=== PATIENT | female | born 1985 | race Asian ===

== ENCOUNTER 2018-10-10 19:47 | Inpatient (IN) | payer OTHER ==
[~2018-10-10] VITALS: Ht 162.6 cm; Wt 73.8 kg
[2018-10-10] MEDS ORDERED: D5%-LACTATED RINGERS 1,000 ML IV SCH (21:41)
[2018-10-10] MEDS ORDERED: LACTATED RINGERS 1,000 ML IV SCH ×2 (21:41→22:35)
[2018-10-10] MEDS ORDERED: OXYTOCIN 30U/ 0.9% NaCL 500ML 500 ML IV ONE (21:41)
[2018-10-10] MEDS ORDERED: FENTANYL/BUPIV./NS/PF 250 ML EPIDCONT SCH ×2 (21:43→22:35)
[2018-10-10] MEDS ORDERED: LIDOCAINE 1%, 10ML ONE (21:48)
[2018-10-10] MEDS ORDERED: NEWBORN KIT ONE (21:48)
[2018-10-10] MEDS ORDERED: OXYTOCIN 30U/ 0.9% NaCL 500ML 500 ML ONE (21:49)
[2018-10-10] MEDS ORDERED: MISOPROSTOL 200 MCG TABLET ONE (21:49)
[2018-10-10 21:59] LABS: BASOPHILS # (AUTO) 0.04 x10^3/uL (0-0.1); BASOPHILS % (AUTO) 0 % (0-1); EOSINOPHILS # (AUTO) 0.03 x10^3/uL (0-0.4); EOSINOPHILS % (AUTO) 0 % (1-7); LYMPHOCYTES # (AUTO) 1.98 x10^3/uL (1-3.4); LYMPHOCYTES % (AUTO) 15 % (22-44); MD NO; MEAN CORPUSCULAR HEMOGLOBIN 33.1 pg (27.0-34.8); MEAN CORPUSCULAR HGB CONC 33.4 g/dL (32.4-35.8); MEAN PLATELET VOLUME 7.2 fL (7.4-10.4); MONOCYTES # (AUTO) 0.75 x10^3/uL (0.2-0.8); MONOCYTES % (AUTO) 6 % (2-9); NEUTROPHILS # (AUTO) 10.13 x10^3/uL (1.8-6.8); NEUTROPHILS % (AUTO) 78 % (42-75); PLATELET COUNT 212 x10^3/uL (130-400); RED BLOOD COUNT 4.05 x10^6/uL (3.82-5.3); RED CELL DISTRIBUTION WIDTH 13.8 % (9.6-15.2)
[2018-10-10] MEDS ORDERED: FENTANYL PF 500 MCG, BUPIVACAINE/PF 0.5%, 30ML 62.5 ML in SODIUM CHLORIDE 0.9% 177.5 ML EPIDCONT SCH (22:00)
[2018-10-10] MEDS ORDERED: SODIUM CITRATE/CITRIC ACID 15 ML UDC PO PRN (22:00)
[2018-10-10] MEDS ORDERED: METOCLOPRAMIDE 5 MG/ML, 2ML IVPush PRN (22:00)
[2018-10-10] MEDS ORDERED: TERBUTALINE 1 MG/ML, 1ML IVPush PRN (22:00)
[2018-10-10] MEDS ORDERED: CALCIUM CARBONATE 500 MG TAB.CHEW PO PRN (22:00)
[2018-10-10] MEDS ORDERED: FENTANYL PF 100 MCG/2ML IVPush PRN (22:00)
[2018-10-10] MEDS ORDERED: FENTANYL PF 100 MCG/2ML IV PRN (22:00)
[2018-10-10] MEDS ORDERED: ONDANSETRON 2MG/ML, 2ML IVPush PRN ×2 (22:00→23:00)
[2018-10-10] MEDS ORDERED: SODIUM CHLORIDE FLUSH 10ML SYR IVF PRN (22:00)
[2018-10-10] MEDS ORDERED: ALUMINUM/MAG/SIMETHICONE 30 ML UDC PO PRN (22:00)
[2018-10-10] MEDS ORDERED: TERBUTALINE 1 MG/ML, 1ML SQ PRN (22:00)
[2018-10-10] MEDS ORDERED: LIDOCAINE/PF 1.5%-EPI 1:200K, 30ML ONE ×2 (22:17→22:20)
[2018-10-10] MEDS ORDERED: BUPIVACAINE 0.25% ONE ×2 (22:17→22:20)
[2018-10-10] MEDS ORDERED: LIDOCAINE 1%, 20ML ONE (22:20)
[2018-10-10] MEDS ORDERED: FENTANYL/BUPIV./NS/PF 250 ML EPIDCONT ONE (22:20)
[2018-10-10] MEDS ORDERED: NALOXONE 0.4 MG/ML, 1ML IVPush PRN (23:00)
[2018-10-10] MEDS ORDERED: EPHEDRINE 50 MG/ML, 1ML IVPush PRN (23:00)
[2018-10-10] MEDS ORDERED: DIPHENHYDRAMINE 50 MG/ML, 1ML IVPush PRN (23:00)
[2018-10-10] MEDS ORDERED: LACTATED RINGERS 1,000 ML IVBOLUS PRN (23:00)
[2018-10-10 23:15] VITALS: BP 121/70
[2018-10-11] MEDS: OXYTOCIN 30U/ 0.9% NaCL 500ML 500 ML IV SCH ×2 (01:58→11:58)
[2018-10-11] MEDS ORDERED: MAGNESIUM HYDROXIDE 8%, 30ML UDC PO PRN (02:00)
[2018-10-11] MEDS ORDERED: METOCLOPRAMIDE 5 MG/ML, 2ML IV PRN (02:00)
[2018-10-11] MEDS ORDERED: IBUPROFEN 800 MG TABLET PO PRN (02:00)
[2018-10-11] MEDS ORDERED: BISACODYL 10 MG SUPP PR PRN (02:00)
[2018-10-11] MEDS ORDERED: CARBOPROST TROMETHAMINE 250 MCG/ML, 1ML IM PRN (02:00)
[2018-10-11] MEDS ORDERED: DOCUSATE 100 MG CAPSULE PO PRN (02:00)
[2018-10-11] MEDS ORDERED: CALCIUM CARBONATE 500 MG TAB.CHEW PO PRN (02:00)
[2018-10-11] MEDS ORDERED: GLYCERIN ADULT SUPP PR PRN (02:00)
[2018-10-11] MEDS ORDERED: DIPH,PERTUSS(ACELL),TET VAC/PF NC IM-VACC PRN (02:00)
[2018-10-11] MEDS ORDERED: ONDANSETRON 2MG/ML, 2ML IV PRN (02:00)
[2018-10-11] MEDS ORDERED: IBUPROFEN 600 MG TABLET PO PRN (02:00)
[2018-10-11] MEDS ORDERED: ACETAMINOPHEN 325 MG TABLET PO PRN ×3 (02:00)
[2018-10-11] MEDS ORDERED: METHYLERGONOVINE 0.2 MG/ML IM PRN (02:00)
[2018-10-11] MEDS ORDERED: MISOPROSTOL 200 MCG TABLET PR PRN ×3 (02:00)
[2018-10-11 03:30] VITALS: BP 116/75
[2018-10-11 07:40] VITALS: BP 116/78
[2018-10-11] MEDS ORDERED: PRENATAL VIT/IRON/FA 1 EACH TABLET PO SCH (09:00)
[2018-10-11 09:37] LABS: BASOPHILS # (AUTO) 0.01 x10^3/uL (0-0.1); BASOPHILS % (AUTO) 0 % (0-1); EOSINOPHILS # (AUTO) 0.04 x10^3/uL (0-0.4); EOSINOPHILS % (AUTO) 0 % (1-7); LYMPHOCYTES # (AUTO) 1.87 x10^3/uL (1-3.4); LYMPHOCYTES % (AUTO) 15 % (22-44); MD NO; MEAN CORPUSCULAR HEMOGLOBIN 31.8 pg (27.0-34.8); MEAN CORPUSCULAR HGB CONC 32.7 g/dL (32.4-35.8); MEAN CORPUSCULAR VOLUME 97.4 fL (80-100); MEAN PLATELET VOLUME 7.3 fL (7.4-10.4); MONOCYTES # (AUTO) 0.83 x10^3/uL (0.2-0.8); MONOCYTES % (AUTO) 7 % (2-9); NEUTROPHILS # (AUTO) 9.57 x10^3/uL (1.8-6.8); NEUTROPHILS % (AUTO) 78 % (42-75); PLATELET COUNT 189 x10^3/uL (130-400); RED CELL DISTRIBUTION WIDTH 13.9 % (9.6-15.2)
[2018-10-11 13:00] VITALS: BP 133/85
[2018-10-11 15:58] VITALS: BP 113/75
[2018-10-11 20:35] VITALS: BP 118/76
[2018-10-12 00:05] VITALS: BP 133/84
[2018-10-12] MEDS ORDERED: IBUP-1222 PO (07:49)
[2018-10-12] MEDS ORDERED: PREN1TAB98 PO (07:50)
[2018-10-12] MEDS ORDERED: ACET325T26 PO (07:50)
[2018-10-12] MEDS ORDERED: ACET-1757 PO (07:51)
[2018-10-12] MEDS ORDERED: CALC500T PO (07:53)
[2018-10-12] MEDS ORDERED: DOCU100C33 PO ×2 (07:53→07:55)
[2018-10-12 08:30] VITALS: BP 131/87
== END 2018-10-12 09:20 | disposition home or self-care (01) | DRG 807 ==
LOC: LDOP 19:47 → LDIP 21:45 → 2NW 10-11 03:27
PROVIDERS: ADMIT Obstetrics & Gynecology; ATTEND Obstetrics & Gynecology
PROC: 10907ZC Drainage of Amniotic Fluid, Therapeutic from Products of Conception, Via Natural or Artificial Opening (ICD-10-PCS; principal; 2018-10-11)
PROC: 10E0XZZ Delivery of Products of Conception, External Approach (ICD-10-PCS; 2018-10-11)
PROC: 3E0R3BZ Introduction of Anesthetic Agent into Spinal Canal, Percutaneous Approach (ICD-10-PCS; 2018-10-11)
PROC: 00HU33Z Insertion of Infusion Device into Spinal Canal, Percutaneous Approach (ICD-10-PCS; 2018-10-11)
DX: O69.1XX0 Labor and delivery complicated by cord around neck, with compression, not applicable or unspecified (principal); Z37.0 Single live birth; Z3A.39 39 weeks gestation of pregnancy
CPT/HCPCS: 36415; J3490; S0020; 84112; 85025; 86850; 86900; 89060; G0378; J3010; J7050; J7120; Q0114